=== PATIENT | female | born 1985 | race Caucasian/White ===

== ENCOUNTER 2017-05-05 13:54 | Inpatient (IN) | payer OTHER ==
[2017-05-05] MEDS ORDERED: Oxytocin in LR* 20 UNITS/1,000 ML BAG IVPB ONE (17:46)
[2017-05-05] MEDS ORDERED: OXYTOCIN* 10 UNITS/ML 1 ML VIAL IM ONE (17:51)
[2017-05-05] MEDS ORDERED: Misoprostol TAB* 200 MCG PR ONE (17:52)
[2017-05-05] MEDS ORDERED: Oxytocin in LR* 20 UNITS/1,000 ML BAG IVPB SCH (18:00)
[2017-05-05 18:18] LABS: Hematocrit 41 % (35-47); Hemoglobin 13.6 g/dl (12.0-16.0); Mean Corpuscular HGB Conc 34 g/dl (31-36); Mean Corpuscular Hemoglobin 30 pg (27-31); Mean Corpuscular Volume 90 fL (80-97); Mean Platelet Volume 10 um3 (7.4-10.4); Red Blood Count 4.52 10^6/ul (4.0-5.4); Red Cell Distribution Width 14 % (10.5-15); White Blood Count 15.9 10^3/ul (3.5-10.8)
[2017-05-05] MEDS ORDERED: Ibuprofen TAB* 600 MG ONE (18:19)
[2017-05-05] MEDS ORDERED: Dibucaine 1% 28.35 GM TUBE PR PRN (18:28)
[2017-05-05] MEDS ORDERED: Acetaminophen TAB* 325 MG PO PRN (18:28)
[2017-05-05] MEDS ORDERED: Witch Hazel PAD* JAR TOPICAL PRN (18:28)
[2017-05-05] MEDS: Docusate CAP* 100 MG PO SCH (21:01)
[2017-05-06] MEDS: Ibuprofen TAB* 600 MG PO PRN ×4 (00:20→21:17)
[2017-05-06 06:37] LABS: Hematocrit 32 % (35-47); Hemoglobin 10.7 g/dl (12.0-16.0); Mean Corpuscular HGB Conc 34 g/dl (31-36); Mean Corpuscular Hemoglobin 30 pg (27-31); Mean Corpuscular Volume 90 fL (80-97); Mean Platelet Volume 10 um3 (7.4-10.4); Red Blood Count 3.53 10^6/ul (4.0-5.4); Red Cell Distribution Width 14 % (10.5-15); White Blood Count 19.6 10^3/ul (3.5-10.8)
[2017-05-06] MEDS: Docusate CAP* 100 MG PO SCH ×3 (08:39→21:17)
[2017-05-06] MEDS: Ferrous Gluconate TAB* 324 MG TAB PO SCH (08:40)
[2017-05-07] MEDS: Ferrous Gluconate TAB* 324 MG TAB PO SCH (00:14)
[2017-05-07 08:09] VITALS: BP 106/73
[2017-05-07] MEDS: Docusate CAP* 100 MG PO SCH (08:16)
[2017-05-07] MEDS: Ibuprofen TAB* 600 MG PO PRN (08:17)
== END 2017-05-07 13:18 | disposition home or self-care (01) | DRG 774 ==
LOC: MCHOBOUT 13:54 → MCHOB 15:15
PROVIDERS: ADMIT Midwife; ATTEND Midwife
PROC: 10E0XZZ Delivery of Products of Conception, External Approach (ICD-10-PCS; principal; 2017-05-05)
PROC: 10907ZC Drainage of Amniotic Fluid, Therapeutic from Products of Conception, Via Natural or Artificial Opening (ICD-10-PCS; 2017-05-05)
DX: O69.81X0 Labor and delivery complicated by cord around neck, without compression, not applicable or unspecified (principal); O72.2 Delayed and secondary postpartum hemorrhage; O77.0 Labor and delivery complicated by meconium in amniotic fluid; Z3A.39 39 weeks gestation of pregnancy; Z37.0 Single live birth
CPT/HCPCS: 36415; 85025; 85027; 86850; 86900; 86901; A9270-GY; J2590